=== PATIENT | male | born 1980 | race Caucasian/White ===

== ENCOUNTER 2017-06-25 11:19 | Inpatient (IN) | END 2017-06-28 14:53 | disposition home or self-care (01) | DRG 378 ==

== ENCOUNTER 2017-10-11 13:44 | Emergency (ER) | END 2017-10-11 15:21 | disposition home or self-care (01) ==

== ENCOUNTER 2017-12-27 01:45 | Emergency (ER) | END 2017-12-27 04:54 | disposition home or self-care (01) ==

== ENCOUNTER 2018-07-22 02:36 | Emergency (ER) | payer SELFPAY ==
[~2018-07-22] VITALS: Ht 167.6 cm; Wt 87.1 kg
[~2018-07-22 02:36] MED LIST: ABCC1C PO; ACET1TAB40 PO; ACYC800T5 PO; AMOX500C2 PO; ANR PR; BENZ-6 PO; CANA1000R PR; CLAR500T PO; DOCU-216 PO; FER325 PO; NAPR-985 PO; ONDA4TAB14 PO; PANT40TA4 PO; POLY17PO6 PO; PRED20TA PO; PROM6.2515 PO; PROP20TA4 PO
[2018-07-22 02:43] VITALS: BP 157/92; PULSE 98; RESP 20; Ht 167.6 cm; Wt 87.1 kg
--- NOTE | 2018-07-22 04:38 | ERD ---
ER Documentation Chief Complaint Chief Complaint Constripation x3 days and anxiety today HPI This is a 37-year-old male presents to emergency department with complaints of constipation for about 3 days. Also complains of anxiety attack today. Patient strongly denies chest pain. Asking for medicine for his anxiety. Denies vomiting. Denies blood in stool. Denies headache, head injury, loss of consciousness, dizziness, neck pain, neck stiffness, throat pain, difficulty swallowing, difficulty breathing lying flat, shoulder pain, chest pain, back pain, abdominal pain, nausea, vomiting, diarrhea, urinary symptoms, loss of bowel and bladder control, trauma, injury, falls, difficulty walking due to pain, numbness or tingling sensation, calf pain, recent travel, recent major surgery in the last 3 weeks, calf pain, recent long travel, recent exposure to any illness, recent antibiotic use in the last 3 months, fever, chills, seizures. Past medical history: Anxiety. Surgical history: Denies. Social: Denies smoking, use of alcoholic beverages, use of illegal drugs. ROS All systems reviewed and are negative except as per history of present illness. Medications Home Meds Active Scripts Hydroxyzine Hcl* (Hydroxyzine Hcl*) 50 Mg Tablet, 50 MG PO Q6H PRN for ANXIETY, #30 TAB Prov:HODA BIRD 07/22/18 Polyethylene Glycol* (Miralax*) 17 Gm Powd.pack, 17 GM PO DAILY PRN for CON STIPATION, #7 Prov:HODA BIRD 07/22/18 Naproxen* (Naprosyn*) 500 Mg Tablet, 500 MG PO BID PRN for PAIN AND/OR INFLAMMATION, #30 TAB Prov:SARAH BARONE PA-C 07/03/18 Promethazine Hcl* (Promethazine Hcl* Syrup) 6.25 Mg/5 Ml Syrup, 6.25 MG PO Q6H PRN for COUGH, #100 ML Prov:SARAH BARONE PA-C 07/03/18 Benzonatate* (Tessalon Perle*) 100 Mg Capsule, 100 MG PO Q8H PRN for COUGH, #30 CAP Prov:SARAH BARONE PA-C 07/03/18 Ondansetron (Ondansetron Odt) 4 Mg Tab.rapdis, 4 MG PO Q6H PRN for NAUSEA AND/OR VOMITING, #20 TAB Prov:IDRIS HAN NP 12/27/17 Lkyglnsvaytbm-Kwjrmhfwgs-Yguuoqeg-Codeine* (Fioricet w/Codeine*) 325MG-50MG- 40MG-30MG Cap, 1 CAP PO Q4H PRN for PAIN LEVEL 1-5, #20 CAP Prov:IDRIS HAN NP 12/27/17 Prednisone* (Prednisone*) 20 Mg Tab, 40 MG PO DAILY for 4 Days, TAB Start October 12, 2017 Prov:JENNIFER CUEVA MD 10/11/17 Acetaminophen with Codeine (Acetaminophen-Cod #3 Tablet) 1 Each Tablet, 1 TAB PO Q6H PRN for PAIN, #10 TAB Prov:JENNIFER CUEVA MD 10/11/17 Acyclovir* (Zovirax*) 800 Mg Tablet, 800 MG PO 5 TIMES DAILY for 7 Days, TAB Prov:JENNIFER CUEVA MD 10/11/17 Amoxicillin* (Amoxicillin*) 500 Mg Cap, 1000 MG PO BID for 14 Days, #28 CAP Prov:GOOD CORONADO NP 06/28/17 Clarithromycin* (Clarithromycin*) 500 Mg Tablet, 500 MG PO BID for 14 Days, #28 TAB Prov:GOOD CORONADO NP 06/28/17 Ferrous Sulfate* (Ferrous Sulfate*) 325 Mg Tabec, 325 MG PO BID, #60 TAB Prov:GOOD CORONADO NP 06/28/17 Hard Fat/Phenylephrine* (Anusol*) 1 Supp Supp, 1 SUPP RI Q12H for HEMORROID PAIN/ITCHING, #30 SUPP Prov:GOOD CORONADO NP 06/28/17 Mesalamine* (Canasa*) 1,000 Mg Supp, 1000 MG RI HS, #30 SUPP Prov:GOOD CORONADO NP 06/28/17 Pantoprazole* (Pantoprazole*) 40 Mg Tablet.dr, 40 MG PO BID@,18, #60 Prov:GOOD CORONADO NP 06/28/17 Docusate Sodium (Dok) 100 Mg Capsule, 100 MG PO BID, #60 CAP Prov:GOOD CORONADO NP 06/28/17 Polyethylene Glycol* (Miralax*) 17 Gm Powd.pack, 17 GM PO BID, #60 Prov:GOOD CORONADO [employer] 06/28/17 Reported Medications Propranolol Hcl* (Propranolol Hcl*) 20 Mg Tablet, 20 MG PO BID, TAB 06/25/17 Allergies Allergies: Coded Allergies: No Known Allergy (Unverified , 12/27/17) PMhx/Soc Medical and Surgical Hx: pt denies Surgical Hx History of Surgery: No Anesthesia Reaction: No Hx Neurological Disorder: No Hx Respiratory Disorders: No Hx Cardiac Disorders: Yes (HTN) Hx Psychiatric Problems: No Hx Miscellaneous Medical Probl: Yes (Hemorrhoids) Hx Alcohol Use: No Hx Substance Use: No Hx Tobacco Use: No Smoking Status: Never smoker Physical Exam Vitals Vital Signs Date Temp Pulse Resp B/P (MAP) Pulse Ox O2 O2 Flow FiO2 Time Delivery Rate 07/22/18 98.3 98 20 157/92 98 02:43 (113) Physical Exam Const: No acute distress Head: Atraumatic Eyes: Normal Conjunctiva ENT: Normal External Ears, Nose and Mouth. Neck: Full range of motion. No meningismus. Resp: Clear to auscultation bilaterally Cardio: Regular rate and rhythm, no murmurs Abd: Soft, non tender, non distended. Normal bowel sounds Skin: No petechiae or rashes Back: No midline or flank tenderness Ext: No cyanosis, or edema Neur: Awake and alert Psych: Normal Mood and Affect Results 24 hrs Current Medications Medications Dose Sig/Candelaria Start Time Status Last (Trade) Ordered Route PRN Stop Time Admin Dose Reason Admin Lorazepam 1 mg ONCE ONCE 07/22/18 DC 07/22/18 (Ativan) PO 05:00 04:56 07/22/18 05:01 Procedures/MDM Diagnostic tests: Clinical exam. Patient refuses diagnostic imaging. Treatment: Ativan p.o. Re-evaluation: Denies pain. Denies auditory/visual hallucinations/delusions. Not suicidal. Not homicidal. Has the capacity to decide for himself. Has good support system at home. Differential diagnosis I have low suspicion for bowel obstruction, suicidal ideation, MT, acute abdomen . Final diagnosis: Constipation. Anxiety. Prescription: MiraLAX. Hydroxyzine. Follow-up with PCP in the next 24-48 hours. Come back here in the emergency department for any new symptoms or any worsening symptoms. All questions and concerns were answered. Patient and family members verbalized understanding and agreed with plan of care. Hemodynamically stable on discharge. Departure Diagnosis: Primary Impression: Constipation Additional Impression: Anxiety Condition: Stable Additional Instructions: Follow-up with PCP in the next 24-48 hours. Come back here in the emergency department for any new symptoms or any worsening symptoms. HODA BIRD Jul 22, 2018 04:38
[2018-07-22] MEDS ORDERED: HYDR50TA15 PO (04:46)
[2018-07-22] MEDS ORDERED: POLY17PO6 PO (04:46)
[2018-07-22] MEDS ORDERED: LORAZEPAM 1 MG TAB PO ONE (05:00)
== END 2018-07-22 05:00 | disposition home or self-care (01) ==
LOC: FTE 02:36
DX: K59.00 Constipation, unspecified (principal); F41.9 Anxiety disorder, unspecified; I10 Essential (primary) hypertension
CPT/HCPCS: 99283

== ENCOUNTER 2018-09-28 15:46 | Emergency (ER) | payer MEDICAID ==
[~2018-09-28] VITALS: Wt 86.3 kg
[~2018-09-28 15:46] MED LIST changes: +HYDR50TA15 PO
[2018-09-28] MEDS ORDERED: SOD CHLORIDE 0.9% 1,000 ML IV STA (18:48)
[2018-09-28] MEDS ORDERED: morphine 4 MG/ML VIAL IV STA (18:48)
[2018-09-28] MEDS ORDERED: KETOROLAC 30 MG INJ IV STA ×2 (18:48→20:06)
[2018-09-28] MEDS ORDERED: ONDANSETRON 4 MG INJ IV STA (18:48)
--- NOTE | 2018-09-28 19:10 | ERD ---
ER Documentation Chief Complaint Chief Complaint CP WITH PALPITATION FOR THE PAST 3 DAYS AND FEELING CRAMPING IN CHEST/ABD HPI This is a 37-year-old French female with no past medical history. The patient indicates for the past 3 days he has had significant cramping of his chest abdomen upper and lower extremity's. He indicated he had a similar episode 3 weeks ago and was seen at [facility]. The patient at that time was hypokalemic. He had no fevers or shaking or chills. He states the abdominal cramping is diffuse. He states the pain is 8 out of 10 in intensity. He has had no hemoptysis no hematemesis no melanotic stools. He denies any tobacco use. He has no family history of coronary artery disease in his first-degree relatives and contrary to the triage note he denies any chest pressure but indicates he is experience some palpitations and a cramping sensation in his chest. ROS All systems reviewed and are negative except as per history of present illness. Medications Home Meds Active Scripts Cyclobenzaprine Hcl* (Cyclobenzaprine Hcl*) 10 Mg Tablet, 10 MG PO TID, #10 TAB Prov:NORMA WILSON MD 09/28/18 Discontinued Reported Medications Propranolol Hcl* (Propranolol Hcl*) 20 Mg Tablet, 20 MG PO BID, TAB 06/25/17 Discontinued Scripts Hydroxyzine Hcl* (Hydroxyzine Hcl*) 50 Mg Tablet, 50 MG PO Q6H PRN for ANXIETY, #30 TAB Prov:HODA BIRD 07/22/18 Polyethylene Glycol* (Miralax*) 17 Gm Powd.pack, 17 GM PO DAILY PRN for CONSTIPATION, #7 Prov:HODA BIRD 07/22/18 Naproxen* (Naprosyn*) 500 Mg Tablet, 500 MG PO BID PRN for PAIN AND/OR INFLAMM ATION, #30 TAB Prov:SARAH BARONE PA-C 07/03/18 Promethazine Hcl* (Promethazine Hcl* Syrup) 6.25 Mg/5 Ml Syrup, 6.25 MG PO Q6H PRN for COUGH, #100 ML Prov:SARAH BARONE PA-C 07/03/18 Benzonatate* (Tessalon Perle*) 100 Mg Capsule, 100 MG PO Q8H PRN for COUGH, #30 CAP Prov:SARAH BARONE PA-C 07/03/18 Ondansetron (Ondansetron Odt) 4 Mg Tab.rapdis, 4 MG PO Q6H PRN for NAUSEA AND/OR VOMITING, #20 TAB Prov:IDRIS HAN NP 12/27/17 Filerylshzqql-Mkathakowz-Srbyjsrb-Codeine* (Fioricet w/Codeine*) [id number]-30MG Cap, 1 CAP PO Q4H PRN for PAIN LEVEL 1-5, #20 CAP Prov:IDRIS HAN NP 12/27/17 Prednisone* (Prednisone*) 20 Mg Tab, 40 MG PO DAILY for 4 Days, TAB Start October 12, 2017 Prov:JENNIFER CUEVA MD 10/11/17 Acetaminophen with Codeine (Acetaminophen-Cod #3 Tablet) 1 Each Tablet, 1 TAB PO Q6H PRN for PAIN, #10 TAB Prov:JENNIFER CUEVA MD 10/11/17 Acyclovir* (Zovirax*) 800 Mg Tablet, 800 MG PO 5 TIMES DAILY for 7 Days, TAB Prov:JENNIFER CUEVA MD 10/11/17 Amoxicillin* (Amoxicillin*) 500 Mg Cap, 1000 MG PO BID for 14 Days, #28 CAP Prov:GOOD CORONADO NP 06/28/17 Clarithromycin* (Clarithromycin*) 500 Mg Tablet, 500 MG PO BID for 14 Days, #28 TAB Prov:GOOD CORONADO NP 06/28/17 Ferrous Sulfate* (Ferrous Sulfate*) 325 Mg Tabec, 325 MG PO BID, #60 TAB Prov:GOOD CORONADO NP 06/28/17 Hard Fat/Phenylephrine* (Anusol*) 1 Supp Supp, 1 SUPP [place] Q12H for HEMORROID PAIN/ITCHING, #30 SUPP Prov:GOOD CORONADO NP 06/28/17 Mesalamine* (Canasa*) 1,000 Mg Supp, 1000 MG W[place] HS, #30 SUPP Prov:GOOD CORONADO NP 06/28/17 Pantoprazole* (Pantoprazole*) 40 Mg Tablet.dr, 40 MG PO BID@, #60 Prov:GOOD CORONADO NP 06/28/17 Docusate Sodium (Dok) 100 Mg Capsule, 100 MG PO BID, #60 CAP Prov:GOOD CORONADO [employer] 06/28/17 Polyethylene Glycol* (Miralax*) 17 Gm Powd.pack, 17 GM PO BID, #60 Prov:GOOD CORONADO [employer] 06/28/17 Allergies Allergies: Coded Allergies: No Known Allergy (Unverified , 09/28/18) PMhx/Soc History of Surgery: No Anesthesia Reaction: No Hx Neurological Disorder: No Hx Respiratory Disorders: No Hx Cardiac Disorders: Yes (HTN) Hx Psychiatric Problems: No Hx Miscellaneous Medical Probl: Yes (Hemorrhoids) Hx Alcohol Use: No Hx Substance Use: No Hx Tobacco Use: No Physical Exam Vitals Vital Signs Date Temp Pulse Resp B/P (MAP) Pulse Ox O2 O2 Flow FiO2 Time Delivery Rate 09/28/18 80 17 115/73 100 Room Air 23:15 (87) 09/28/18 61 16 109/79 100 Room Air 21:30 (89) 09/28/18 69 16 136/80 100 Room Air 20:00 (98) 09/28/18 98.0 76 20 169/85 98 15:48 (113) Physical Exam Constitutional:Well-developed. Well-nourished. HEENT:Normocephalic. Atraumatic.Pupils were equal round reactive to light. Dry mucous membranes.No tonsillar exudates. Neck: No nuchal rigidity. No lymphadenopathy. No posterior cervical spine tenderness or step-offs. Respiratory: Not using accessory muscles of respiration.Lungs were clear to auscultation bilaterally. No rhonchi. No rales. No wheezing. Cardiovascular: Regular rate regular rhythm.No murmurs. No rubs were appreciated.S1, S2 normal. Distal pulses are palpable 2+ bilaterally. GI: Abdomen was soft. Epigastric tenderness and tenderness in the left lower quadrant. Non Distended. No pulsatile abdominal masses or bruits. No rebound. No guarding. Bowel sounds were present and normal. Muscle skeletal: Full range of motion of both the upper and lower extremities bilaterally.Normal muscle tone.No assymetrical calf tenderness or swelling. Skin: No petechia, no purpura. No lesions on the palms or the soles of the feet. No maculopapular rash. NEURO: Patient was alert, awake, orientated x3.No facial droop. Gait observed and normal with no ataxia.Speech had regular rate and rhythm. No focal neurological deficits. Result Diagram: 09/28/[id number]/[id number] Results 24 hrs Laboratory Tests Test 09/28/18 18:59 White Blood Count 3.5 10^3/ul Red Blood Count 4.69 10^6/ul Hemoglobin 10.6 g/dl Hematocrit 35.6 % Mean Corpuscular Volume 75.9 fl Mean Corpuscular Hemoglobin 22.6 pg Mean Corpuscular Hemoglobin Concent 29.8 g/dl Red Cell Distribution Width 17.1 % Platelet Count 190 10^3/UL Mean Platelet Volume 8.9 fl Immature Granulocytes % 0.600 % Neutrophils % 61.9 % Lymphocytes % 23.8 % Monocytes % 9.9 % Eosinophils % 3.2 % Basophils % 0.6 % Nucleated Red Blood Cells % 0.0 /100WBC Immature Granulocytes # 0.020 10^3/ul Neutrophils # 2.1 10^3/ul Lymphocytes # 0.8 10^3/ul Monocytes # 0.3 10^3/ul Eosinophils # 0.1 10^3/ul Basophils # 0.0 10^3/ul Nucleated Red Blood Cells # 0.0 10^3/ul Prothrombin Time 11.5 Sec Prothrombin Time Ratio 0.9 INR International Normalized Ratio 0.83 Activated Partial Thromboplast Time 25.0 Sec Sodium Level 141 mmol/L Potassium Level 3.7 mmol/L Chloride Level 106 mmol/L Carbon Dioxide Level 28 mmol/L Anion Gap 7 Blood Urea Nitrogen 8 mg/dl Creatinine 0.74 mg/dl Est Glomerular Filtrat Rate mL/min > 60 mL/min Glucose Level 116 mg/dl Calcium Level 9.2 mg/dl Total Bilirubin 0.0 mg/dl Direct Bilirubin 0.00 mg/dl Indirect Bilirubin 0.0 mg/dl Aspartate Amino Transf (AST/SGOT) 62 IU/L Alanine Aminotransferase (ALT/SGPT) 127 IU/L Alkaline Phosphatase 112 IU/L Creatine Kinase 110 IU/L Creatine Kinase Index 0.6 Creatinine Kinase MB (Mass) 0.63 ng/ml Troponin I < 0.012 ng/ml B-Type Natriuretic Peptide 37 PG/ML Total Protein 7.3 g/dl Albumin 4.0 g/dl Globulin 3.30 g/dl Albumin/Globulin Ratio 1.21 Amylase Level 117 U/L Lipase 151 U/L Current Medications Medications Dose Sig/Candelaria Start Time Status Last (Trade) Ordered Route PRN Stop Time Admin Dose Reason Admin Sodium 1,000 ml @ Q1H STAT 09/28/18 DC 09/28/18 Chloride 1,000 mls/hr IV 18:48 19:06 09/28/18 19:47 Morphine 4 mg ONCE STAT 09/28/18 DC 09/28/18 Sulfate IV 18:48 19:06 (morphine) 09/28/18 18:49 Ondansetron 4 mg ONCE STAT 09/28/18 DC 09/28/18 HCl (Zofran IV 18:48 19:06 Inj) 09/28/18 18:49 Ketorolac 30 mg ONCE STAT 09/28/18 DC 09/28/18 Tromethamine IV 18:48 19:06 (Toradol) 09/28/18 18:49 Ketorolac 30 mg ONCE STAT 09/28/18 DC 09/28/18 Tromethamine IV 20:06 20:12 (Toradol) 09/28/18 20:09 Lorazepam 1 mg ONCE ONCE 09/28/18 DC 09/28/18 (Ativan) IV 20:30 20:12 09/28/18 20:31 Procedures/MDM The patient presented to the emergency department with chest pain, abdominal pain and diffuse cramping. My clinical evaluation and workup was to distinguish minor causes of chest pain from acute life threatening conditions such as myocardial infarction, pulmonary embolism, aortic dissection, esophageal rupture, cardiac tamponade. The patient was placed on a video games storywriter and continuous pulse oximetry. IV access established by nursing staff. The patient showed signs of clinical dehydration was given a liter bolus of normal saline. 12 Lead EKG tracing ordered and reviewed by myself showed: Normal sinus rhythm of 69 bpm and no arrhythmia. [place] interval normal. QRS duration normal. No ST segment elevation No ST segment depression. No changes consistent with acute ischemia. Continue 1 view chest radiograph there is no infiltrates pneumothorax. The patient is now complaining of muscle spasms of his upper and lower extremities. The patient had no reproducible tenderness of his calf or Homans sign to suggest deep vein thrombosis. The patient also appeared to be very anxious. He was given IV Ativan. He stated his symptoms had significantly improved. Observation Note: Time: 4 hours Family Hx: No Hypertension Evaluation: Multiple exams showed improving symptoms and no evidence of rhabdomyolysis or other acute life-threatening etiology. I indicated the patient did not have an exact etiology and his symptoms but he felt comfortable being discharged home with muscle relaxants. His potassium was within normal limits. The patient was discharged home in fair condition. They were instructed to return to the emergency department at any time if there was any worsening of their condition. The patient stated they would follow up with their PCP in the next 24-48 hours to initiate a suitable medication regimen under the care of their PCP as well as to allow their PCP to monitor any drug reactions. The patient was discharged home with prescriptions after they gave informed consent to the new medication. They were also fully informed by myself on the adverse effects and adverse drug interactions in order to provide adequate safeguards to prevent possible adverse reactions to medications. Departure Diagnosis: Primary Impression: Palpitations Additional Impression: Muscle spasm Condition: NORMA Escamilla MD Sep 28, 2018 19:10
[2018-09-28] MEDS ORDERED: LORAZEPAM 2 MG INJ IV ONE (20:30)
[2018-09-28] MEDS ORDERED: CYCL10TA7 PO (22:26)
[2018-09-28 23:15] VITALS: BP 115/73; PULSE 80; RESP 17
== END 2018-09-28 23:23 | disposition home or self-care (01) ==
LOC: E/R 15:46
DX: R00.2 Palpitations (principal); I10 Essential (primary) hypertension; M62.838 Other muscle spasm
CPT/HCPCS: 71045; 80053; 82150; 82550; 82553; 83690; 83880; 84484; 85025; 85610; 85730; 93005; 96374; 96375; 96376; J1885; J2060; J2270; J2405; J7030; Z7502